=== PATIENT | male | born 1990 | race Caucasian/White ===

== ENCOUNTER 2019-07-25 08:15 | Emergency (ER) | payer MEDICAID ==
[~2019-07-25] VITALS: Ht 154.9 cm; Wt 71.7 kg
[2019-07-25 08:18] VITALS: Ht 154.9 cm; Wt 71.7 kg
[2019-07-25 10:27] VITALS: BP 128/80
== END 2019-07-25 10:27 | disposition home or self-care (01) ==
LOC: ED 08:15
DX: S16.1XXA Strain of muscle, fascia and tendon at neck level, initial encounter (principal); S20.212A Contusion of left front wall of thorax, initial encounter; V49.49XA Driver injured in collision with other motor vehicles in traffic accident, initial encounter; Y93.I9 Activity, other involving external motion; Y92.413 State road as the place of occurrence of the external cause; Y99.8 Other external cause status